=== PATIENT | male | born 1990 | race Caucasian/White ===

== ENCOUNTER 2016-05-25 09:40 | Emergency (ER) | payer BC ==
[~2016-05-25] VITALS: Ht 185.4 cm; Wt 122.5 kg
[2016-05-25] MEDS ORDERED: ZITHROMAX Z PA250 MG PO (10:19)
[2016-05-25] MEDS ORDERED: MEDROL 4MG. DOSE4 MG PO (10:19)
[2016-05-25] MEDS ORDERED: PROVENTIL0.09 MG/A1 IH (10:19)
--- NOTE | 2016-05-25 10:20 | Urgent Treatment Center Report ---
History of Present Issue Date/Time Seen by Provider 05/25/16 1007 Visit Reason Pt arrived:Walked Presenting Problem:PT STATES HIS RIGHT EAR CLOSED UP LAST NIGHT BEFORE HE WENT TO BED. STATES EAR IS NOW BEGINNING TO HURT. STATES HE HAS BEEN SICK RECENTLY Location if Accident: Onset of symptoms date/time:05/24/16/ or onset unknown for:MEDICAL HX UNKNOWN Have you (or family members/close friends) recently traveled outside the [facility]? N If Yes, where/when: Have you had exposure to infectious disease within the past month? TB? Other? Specify: c/o right ear "stopped up" since last night and this morning, right ear pain . Denies injury. "I was just watching TV and it was suddenly stopped up". No drainage, fever, headache, dizziness. Hasn't taken or tried anything for ear. No known sick contacts. Has had "a cold" for last 5 days. "I was trying to let that run it's course". Productive cough, wheezing, PND, mild rhinorrhea and "a little" SOA w/ "lots of activity". Cough worse first thing in morning. Yellow sputum. + hx of tobacco abuse. Saw PCP 1-2 months ago for similiar symptoms and told asthma and bronchitis. Hasn't taken or tried anything for these symptoms. Source patient Exam Limitations no limitations ALLERGIES Coded Allergies: No Known Allergies (05/25/16) History Medical History General CAD? No Angina: No [place]: No Hypertension? No Hyperlipidemia? No CHF? No DVT? No PE? No COPD? No Asthma? No Anemia? No GERD? No Gastric ulcers? No GI Bleed? No Hernia? No Thyroid Problems? No Hypothyroidism? No CVA? No Seizures? No Diabetes? No Renal Insuffiency? No UTI? No Stones? No BPH? No GB Disease: No Nephritic Syndrome? No Asplenia? No Hepatitis? No Sickle Cell Disease? No Arthritis? No Migraines? No Cataracts? No Glaucoma? No MRSA? No HIV? No TB? No Anxiety? No Depression? No Cancer? No Immunization HX DT/Tetanus 1-4 YRS Surgical Hx Previous Surgery?Y EAR TUBES CYST TO FINGER Social History Smoking Hx Smoker: Current Every Day Smoker Tobacco: Yes Type Cigarettes Alcohol Alcohol: No Review of Systems All Other Systems Reviewed and Negative Constitutional see HPI, denies chills, denies malaise Eyes denies drainage ENT see HPI. denies: nose congestion, throat pain. Respiratory see HPI Cardiovascular denies chest pain Psychiatric/Neurological see HPI Physical Exam Vital Signs Vital Signs Date Time Temp Pulse Resp B/P Pulse O2 O2 Flow FiO2 Ox Delivery Rate 05/25 0948 98.0 88 20 122/74 98 General Appearance normal appearance, no apparent distress Eye Exam - bilateral eye normal exam Ear, Nose, Throat hearing grossly normal, normal pharynx, left EAC and TM normal , right EAC normal but TM grossly abnormal. intact, bulging, bright red, presence of infected scarred TM although pt denies extensive ear hx, no visible landmarks, Neck non-tender, supple Respiratory Status Yes: chest symmetrical, non productive cough (once in clinic). No: respiratory distress, use of accessory muscles. Lung Sounds anterior: rhonchi, wheezing. posterior: rhonchi, wheezing. bilateral: rhonchi, wheezing. Cardiovascular regular rate/rhythm, no peripheral edema, no murmur Neurologic alert Skin normal color, warm/dry Lymphatic no adenopathy (cervical) Medical Decision Making LABS/Meds/Orders Pt receiving controlled substance in ED? No Departure Departure Time of Disposition 1015 Disposition DC Home or Self Care(routine) Clinical Impression Primary Impression: Acute bronchitis Qualifiers: Bronchitis organism: unspecified organism Qualified Code: J20.9 - Acute bronchitis, unspecified Secondary Impressions: Right otitis media Qualifiers: Otitis media type: unspecified Chronicity: unspecified Qualified Code: H66.91 - Otitis media, unspecified, right ear Tobacco abuse Condition STABLE Referrals Raymundo HALL,Gregg Edouard (Family) Follow up IMMEDIATELY for new or worsening symptoms OR no noticeable improvement over the next 48-72 hours. AND 10-14 days for repeat exam to ensure ear infection resolved 911 for difficulty breathing. Patient Instructions DI for Acute Bronchitis, DI for Otitis Media (Middle Ear Infection)-Child Additional Instructions * start antibiotic today. Be sure to complete entire prescription even if feeling better. This antibiotic should help your ear and if bacterial, your chest. * Tylenol and ibuprofen as needed for ear pain * humidifier/vaporizer/hot steamy shower * Inhaler every 4-6 hours as needed like we discussed. If unsure how to use it, ask pharmacist to demonstrate how. Pt reports he has used them in the past. Should help open airways and improve cough, wheezing, shortness of breath. * Mucinex during the day for your cough and cough suppressant only at night. Be sure to drink lots of water. Insurance may not cover a prescription of mucinex. Might be cheaper to get 400mg tablets and take 2 tablets morning, midday and evening all with lots of water. * Start steroid today. Helps with inflammation therefore, cough and wheezing. Follow directions on package. Rvwd side effects. Pt reports they have taken them before. Follow up IMMEDIATELY for new or worsening symptoms OR no noticeable improvement over the next 48-72 hours. Also be sure to Follow up as discussed in 10-14 days to ensure right ear infection resolved. 911 for difficulty breathing. Discharge Counseling Counseled pt/family regarding diagnosis, test results, medications/RX, home care, follow up needs Prescriptions Current Visit Scripts Azithromycin (Zithromycin (Z-ORLIN) 250MG Tab) 250 MG PO DAILY #6 TAB TAKE TWO (2) TABLETS ON DAY 1, THEN ONE (1) TABLET DAY #2 THRU #5 ALBUTEROL (Proventil Hfa Inhaler) 1-2 PUFF IH Q4-6H PRN PRN SOA, wheezing #1 CAN Methylprednisolone (Medrol Dose Orlin) 4 MG PO UD #1 ORLIN TAKE DIRECTED ON PACKAGING at 1022
[2016-05-25 10:22] VITALS: BP 122/74
== END 2016-05-25 10:22 | disposition home or self-care (01) ==
LOC: UTC 09:40
DX: J20.9 Acute bronchitis, unspecified (principal); H66.91 Otitis media, unspecified, right ear; Z72.0 Tobacco use

== ENCOUNTER 2016-10-25 09:40 | Emergency (ER) | payer BC ==
[~2016-10-25] VITALS: Ht 188 cm; Wt 122.5 kg
[~2016-10-25 09:40] MED LIST: MEDROL 4MG. DOSE4 MG PO; PROVENTIL0.09 MG/A1 IH; ZITHROMAX Z PA250 MG PO
--- NOTE | 2016-10-25 10:14 | Urgent Treatment Center Report ---
History of Present Issue Date/Time Seen by Provider 10/25/16 1010 Visit Reason Pt arrived:Walked Presenting Problem:SORE THROAT AND CONGESTION Location if Accident: Onset of symptoms date/time:/ or onset unknown for:MEDICAL HX UNKNOWN Have you (or family members/close friends) recently traveled outside the [place]? N If Yes, where/when: Have you had exposure to infectious disease within the past month? TB? Other? Specify: Patient states that he has been having sore throat cough and congestion State that he has been having sinus pain and pressure along with drainage down the back of his throat. State that he thought it would get better but has continued to get worse so he came in to get himself checked out ALLERGIES Coded Allergies: No Known Allergies (05/25/16) History Medical History General CAD? No Angina: No [place]: No Hypertension? No Hyperlipidemia? No CHF? No DVT? No PE? No COPD? No Asthma? No Anemia? No GERD? No Gastric ulcers? No GI Bleed? No Hernia? No Thyroid Problems? No Hypothyroidism? No CVA? No Seizures? No Diabetes? No Renal Insuffiency? No UTI? No Stones? No BPH? No GB Disease: No Nephritic Syndrome? No Asplenia? No Hepatitis? No Sickle Cell Disease? No Arthritis? No Migraines? No Cataracts? No Glaucoma? No MRSA? No HIV? No TB? No Anxiety? No Depression? No Cancer? No Immunization HX DT/Tetanus 1-4 YRS Surgical Hx Previous Surgery?Y EAR TUBES CYST TO FINGER Social History Smoking Hx Smoker: Current Every Day Smoker Tobacco: Yes Type Cigarettes Alcohol Alcohol: No Review of Systems All Other Systems Reviewed and Negative ENT ear pain, nose discharge, nose congestion, throat pain, throat swelling. Physical Exam Vital Signs Vital Signs Date Time Temp Pulse Resp B/P Pulse O2 O2 Flow FiO2 Ox Delivery Rate 10/25 0952 98.0 97 20 144/80 97 General Appearance Patient appears ill, flush cheeks Ear, Nose, Throat nasal congestion, tonsillar swelling, throat red irritated, swollen drainage noted in back of throat Respiratory Status Yes: trachea midline, chest symmetrical, non tender chest. No: respiratory distress. Cardiovascular normal exam, regular rate/rhythm, no peripheral edema, no gallop, no JVD Neurologic alert, building attendant II-XII nml as tested, normal exam, no motor/sensory deficits, oriented x 3 Medical Decision Making LABS/Meds/Orders Pt receiving controlled substance in ED? No Results/Orders Laboratory Tests 10/25/16 1002: Group A Strep Screen NOT DETECTED Orders Procedure Date/time Status [facility] STREP SCREEN 10/25 1010 Complete Departure Departure Time of Disposition 1025 Disposition DC Home or Self Care(routine) Clinical Impression Primary Impression: Upper respiratory infection Qualifiers: URI type: acute tonsillitis Pharyngitis/tonsillitis etiology: unspecified etiology Qualified Code: J03.90 - Acute tonsillitis, unspecified Condition STABLE Patient Instructions DI for Nasal Congestion, Sore Throat Additional Instructions * Monitor Temp. Tylenol and/or Ibuprofen as needed. ER if fever is no less than 101 despite alternating Tylenol and Ibuprofen * Encourage fluids, water, Gatorade, powerade, pedialyte if /toddler/or child * Warm salt water gargles for throat irritation *Warm fluids *Sore throat lozenges *Sleep elevated *humidifier or vaporizer *Flonase 2 sprays each nostril daily but may take 2-3 days to notice improvement with it Follow up IMMEDIATELY for new or worsening of symptoms OR no noticeable improvement over the next 48-72 hours. 911 immediately for any life threatening symptoms such as chest pain or difficulty breathing Discharge Counseling Counseled pt/family regarding diagnosis, test results, medications/RX, home care, follow up needs Prescriptions Current Visit Scripts CEFDINIR (Cefdinir) 300 MG PO BID #20 CAP Fluticasone Propionate (Flonase 50 Mcg Nasal [place]) 2 SPRAY NA DAILY #1 BOT Methylprednisolone (Medrol Dose Sharri) 4 MG PO UD #1 SHARRI TAKE DIRECTED ON PACKAGING at 1034
[2016-10-25] MEDS ORDERED: MEDROL 4MG. DOSE4 MG PO (10:34)
[2016-10-25] MEDS ORDERED: OMNICEF 300 MG300 MG PO (10:34)
[2016-10-25] MEDS ORDERED: FLONASE 50 MCG16 GM (10:34)
[2016-10-25 10:36] VITALS: BP 144/80
== END 2016-10-25 10:39 | disposition home or self-care (01) ==
LOC: UTC 09:40
DX: J03.90 Acute tonsillitis, unspecified (principal); F17.210 Nicotine dependence, cigarettes, uncomplicated